=== PATIENT | female | born 2000 | race African-American/Black ===

== ENCOUNTER 2025-07-28 02:45 | Emergency (ER) | payer MEDICAID, OTHER ==
[~2025-07-28] VITALS: Ht 162.6 cm; Wt 74.2 kg
[2025-07-28 03:29] VITALS: O2SAT 99
[2025-07-28 03:54] VITALS: TEMP 36.8
[2025-07-28] MEDS: KETOROLAC 15MG/ML VIAL IM ONE (03:57)
[2025-07-28] MEDS: LIDOCAINE 5% PATCH TOP SCH (03:57)
[2025-07-28] MEDS ORDERED: NAPR-1176 MT (04:23)
[2025-07-28] MEDS ORDERED: LIDO-53 TP (04:23)
[2025-07-28 04:34] VITALS: BP 112/76; PULSE 65; RESP 15; O2SAT 100
== END 2025-07-28 04:34 | disposition home or self-care (01) ==
LOC: ER 02:45
DX: M54.2 Cervicalgia (principal); J45.909 Unspecified asthma, uncomplicated; Z79.1 Long term (current) use of non-steroidal anti-inflammatories (NSAID); Y92.410 Unspecified street and highway as the place of occurrence of the external cause; Y93.89 Activity, other specified; V89.2XXA Person injured in unspecified motor-vehicle accident, traffic, initial encounter; Y99.8 Other external cause status
CPT/HCPCS: 81025; 96372; 99283; J1885; Z7610